=== PATIENT | female | born 1965 | race Caucasian/White ===

== ENCOUNTER 2025-05-31 16:55 | Emergency (ER) | payer MEDICARE, SELFPAY ==
--- OUTSIDE RECORDS SUMMARY | 2025-05-24 08:46 | XMS_ITS | Encounter Summary ---
Author Organization [facility] Address [address], [address] [place] [address] Care Team Providers Care Setter Cold Rolling Machine Name Role Phone Jhoana Rodrigues MD Primary Care Provider [phone] Reason for Referral * Other (Routine) - Closed Specialty Diagnoses / Procedures Referred By Contac t Referred To Contact Radiology Diagnoses Breast cancer screening by mammogram Procedures [facility]ERSON [facility] DIGITAL SCREEN BILATERAL Jhoana Rodrigues MD [address] [place] [address] Phone: tel: fax: Referral ID Status Reason Start Date Expiration Date Visits Re quested Visits Authorized [id number] Closed 05/10/2025 05/10/2026 1 1 Reason for Visit * Other (Routine) - Closed Specialty Diagnoses / Procedures Referred By Contcatalina etienne Referred To Contact Radiology Diagnoses Breast cancer screening by mammogram Procedures [facility] LYNN DIGITAL SCREEN BILATERAL Jhoana Rodrigues MD [address] [place] [address] Phone: tel: fax: Referral ID Status Reason Start Date Expiration Date Visits Re quested Visits Authorized [id number] Closed 05/10/2025 05/10/2026 1 1 Encounter Details Date Type Department Care Team (Latest Contact Info) Description 05/24/2025 8:46 AM EDT - 05/26/2025 11:59 PM EDT Hospital Encounter [facility] [address] [place] [address] Jhoana Rodrigues MD [address] [place] [id number] Breast cancer screening by mammogram Discharge Disposition: Home or Self Care Social History Tobacco Use Types Packs/Day Years Used Date Smoking Tobacco: Never Smokeless Tobacco: Never Comments Unknown Sex and Gender Information Value Date Recorded Sex Assigned at Not on file Legal Sex Female 11:30 AM EDT Gender Identity Not on file Sexual Orientation Not on file documented as of this encounter Medications at Time of Discharge escitalopram (LEXAPRO) 10 MG tabletIndication s:Situational anxiety TAKE 1 TABLET BY MOUTH DAILY 90 tablet 3 04/26/2025 SEMAGLUTIDE-WEIG HT MANAGEMENT SC Inject 1.7 mg into the skin once a week Compounded 2.5mg/ml documented as of this encounter Plan of Treatment Upcoming Encounters Date Type Department Care Team (Latest Contact Info) Description 07/08/2025 10:00 AM EDT Office Visit [facility] Specialty Providers on Main [address] [id number] Asiya Child, COMPUTER TECHNOLOGY TRAINER - PICKER FEEDER [address] [place] [address] Z12.11 (ICD-10-CM) - Colon cancer screening 11/11/2025 8:00 AM EST Scheduled Telephone Encounter [facility] Medical Providers at [address] [address] Jhoana Rodrigues MD [address] [place] [address] [id number] TELE 6 mo f/u 30' documented as of this encounter Procedures Procedure Name Priority Date/Time Associated Diagnosis Comments JERSON LYNN DIGITAL SCREEN BILATERAL Routine 05/24/2025 9:02 AM EDT Breast cancer screening by mammogram documented in this encounter Results * JERSON LYNN DIGITAL SCREEN BILATERAL (05/24/2025 9:02 AM EDT) Anatomical Region Laterality Modality Breast Bilateral Mammography 05/24/2025 9:02 AM EDT Impressions 2025 9:28 AM EDT No evidence of malignant breast disease. Annual screening mammography is recommended. BIRADS: 1 - Negative, no evidence of malignancy. Normal interval followup in 12 months. OVERALL ASSESSMENT- NEGATIVE A letter of notification will be sent to the patient regarding the results. Guidelines for Early Breast Cancer Detection: -Annual mammography screening begins at the age of 40 and continues for as long as the patient is in good health. -Women at increased risk (e.g., family history, genetic tendency, past breast cancer) should discuss with their doctor about the benefits and limitations of starting mammography screening earlier, having additional test (e.g., breast ultrasound, breast MRI) or having more frequent exams. Screening breast MRI is recommended for women with a strong family history of breast or ovarian cancer and women who were treated for Hodgkin's disease. -Dense breast parenchyma makes detection of small lesions difficult on mammography. Consider breast ultrasound as an additional tool. -7-10% of cancers are not identified by mammography. Any palpable findings should be evaluated independently of this report. -A negative mammogram should not delay biopsy if a dominant or clinically suspicious mass is present. Approximately 20% of cancers are not identified by screening mammography. False-negative results occur when mammograms appear normal even though breast cancer is present. False-positive reports average 6-10%. -As per MQSA (mammography quality standards act) requirements and the ACR ([place] [employer]) recommendations, a letter has been sent to the referring physician and/or to the patient. We appreciate being involved in this patient's care. Narrative 2025 9:28 AM EDT EXAM: [facility] LYNN DIGITAL SCREEN BILATERAL EXAM: [facility] L[facility]NN DIGITAL SCREEN BILATERAL HISTORY: Breast cancer screening by mammogram. History of 3 maternal aunts with breast cancer asymptomatic. No hormone replacement therapy. No prior breast procedures. COMPARISON: 05/20/2024. 05/20/2024, 05/20/2023, 04/27/2020. TECHNIQUE: Bilateral full-field digital MLO and CC mammographic views were obtained with 3-D breast tomosynthesis. CAD was utilized FINDINGS: BREAST DENSITY CODE: There are scattered areas of fibroglandular density. No mass, area of architectural distortion, or cluster of suspicious microcalcifications is seen. Report electronically signed by: Dr. Meena Del Rio Procedure Note Meena Del Rio MD - 2025 EXAM: [facility] L[facility]NN DIGITAL SCREEN BILATERAL EXAM: [facility] L[facility] DIGITAL SCREEN BILATERAL HISTORY: Breast cancer screening by mammogram. History of 3 maternal auntswith breast cancer asymptomatic. No hormone replacement therapy. No priorbreast procedures. COMPARISON: 05/20/2024. 05/20/2024, 05/20/2023, 04/27/2020. TECHNIQUE: Bilateral full-field digital MLO and CC mammographic views were obtained with 3-D breast tomosynthesis. CAD was utilized FINDINGS: BREAST DENSITY CODE: There are scattered areas of fibroglandular density. No mass, area of architectural distortion, or cluster of suspicious microcalcifications is seen. Report electronically signed by: Dr. Meena Del Rio IMPRESSION: No evidence of malignant breast disease. Annual screening mammography is recommended. BIRADS: 1 - Negative, no evidence of malignancy. Normal interval followupin 12 months. OVERALL ASSESSMENT- NEGATIVE A letter of notification will be sent to the patient regarding theresults. Guidelines for Early Breast Cancer Detection: -Annual mammography screening begins at the age of 40 and continues for aslong as the patient is in good health. -Women at increased risk (e.g., family history, genetic tendency, pastbreast cancer) should discuss with their doctor about the benefits andlimitations of starting mammography screening earlier, having additional test (e.g.,breast ultrasound, breast MRI) or having more frequent exams. Screening breastMRI is recommended for women with a strong family history of breast or ovariancancer and women who were treated for Hodgkin's disease. -Dense breast parenchyma makes detection of small lesions difficult on mammography. Consider breast ultrasound as an additional tool. -7-10% of cancers are not identified by mammography. Any palpable findings should be evaluated independently of this report. -A negative mammogram should not delay biopsy if a dominant or clinically suspicious mass is present. Approximately 20% of cancers are notidentified by screening mammography. False-negative results occur when mammograms appear normal even though breast cancer is present. False-positive reportsaverage 6-10%. -As per MQSA (mammography quality standards act) requirements and the ACR ([place] [employer]) recommendations, a letter has been sent tothe referring physician and/or to the patient. We appreciate being involved inthis patient's care. us Jhoana Rodrigues MD IMG MAMMOGRAPHY ORDERABLES Fi nal Result documented in this encounter Visit Diagnoses Diagnosis Breast cancer screening by mammogram documented in this encounter Care Teams Setter Cold Rolling Machine Relationship Specialty Start Date End Date Jhoana Rodrigues MD [address] [place] [address] PCP - General Internal Medicine/Pediatrics 07/01/24 documented as of this encounter
[2025-05-31 16:58] VITALS: BP 134/87; PULSE 80; TEMP 37.3; O2SAT 98; BMI 26.6
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
--- NOTE | 2025-05-31 17:09 | CT_ITS ---
The [address] [address] Patient Name: CHEVY LERNER MRN: [id number] date: 1965 Sex: F Assigned Patient Location: ER Current Patient Location: ER Accession/Order Number: [id number] Exam Date: 05/31/2025 17:49 Report Date: 05/31/2025 18:26 At the request of: GREGORIO DAVID DO Procedure: CT soft tissue neck w con CT soft tissue neck w con 05/31/2025 5:57 PM SIGNS AND SYMPTOMS: Left-sided neck swelling and lump CONTRAST: 100 mL of intravenous Omnipaque 300 TECHNIQUE: Multidetector CT axial slices of the soft tissues of the neck were obtained with IV contrast. Sagittal and coronal reformats were reconstructed. CT was performed with one or more of the following dose reduction techniques: Automated exposure control, adjustment of the mA and/or kV according to patient size, or use of iterative reconstruction technique. COMPARISON: None FINDINGS: Soft tissues of the orbits are within normal limits. The soft tissues of the infratemporal fossa fossa structures show no acute abnormality. Mucosal surfaces of the nasopharynx, oropharynx, hypopharynx, glottic, and subglottic airways are grossly unremarkable. There is a heterogeneously enhancing presumed centrally necrotic lymph node in the left level 2 deep to the sternocleidomastoid measuring 1.9 x 2.9 x 3.1 cm. Additional less prominent enhancing lymph nodes are noted in the left level 2A, level 3, and level 4 measuring up to 7 mm in short axis. Fat stranding is noted adjacent to the largest lymph node and extending along the sternocleidomastoid appears to be thickened. The parotid glands, submandibular, and the thyroid gland are within normal limits. The carotid and jugular circulations are within normal limits. The visualized lung parenchyma shows no acute pathology. No acute bony abnormalities are appreciated. Degenerative changes are noted in the cervical spine. The skull base, craniocervical junction, atlantoaxial joints are within normal limits. The paranasal sinuses are within normal limits. CT/CT soft tissue neck w con IMPRESSION: There is a heterogeneously enhancing presumed centrally necrotic lymph node in the left level 2 deep to the sternocleidomastoid measuring 1.9 x 2.9 x 3.1 cm. This is most likely neoplastic. A primary oropharyngeal mass is suspected but is not visualized. Direct visualization is recommended. Additional less prominent enhancing lymph nodes are noted in the left level 2A, level 3, and level 4 measuring up to 7 mm in short axis. Fat stranding is noted adjacent to the largest lymph node and extending along the sternocleidomastoid appears to be thickened. Impression dictated by: Henry Heath M.D. 05/31/2025 6:26 PM Dictation Location: [place] [address] Electronically authenticated by: [id number] Y Date: 05/31/2025 18:26
--- NOTE | 2025-05-31 17:15 | ED.GENADUL1 ---
HPI HPI - General Adult General Chief complaint: Neck Pain/Injury Stated complaint: Neck Pain Lump Time Seen by Provider: 05/31/25 17:03 Source: patient Mode of arrival: walk-in Limitations: no limitations History of Present Illness HPI narrative: Patient is a healthy 60-year-old female presenting to the emergency department for left neck pain and swelling. Patient states she noticed the swelling 6 days ago, somewhat quick in onset. She states that the swelling has been persistent over the last 6 days, not getting any better or worse. She states that it is extremely tender to the touch. She states she is limited range of motion of the neck secondary to pain. She denies any injuries to the areas. She denies any history of thyroid disease. She denies any trouble swallowing, breathing, speaking, or any other systemic symptoms. She denies headache, visual changes, chest pain, shortness of breath, nausea, vomiting, and abdominal pain, fevers, or chills. She denies any recent weight changes. No changes in her, skin, or nails. Related Data Allergies Allergy/AdvReac Type Severity Reaction Status Date / Time No Known Drug Allergies Allergy Verified 05/31/25 16:58 Opioid HPI Opioid Management Most Recent Opioid Data: Last Pain Scale 6 Today, 16:58 Review of Systems ROS Status of ROS 10 or more systems reviewed and unremarkable except as noted in history and below PFSH PFSH Social History Little interest or pleasure in doing things: not at all Feeling down, depressed, or hopeless: not at all Exam Narrative Exam Narrative: CONSTITUTIONAL: Well-appearing, nontoxic, answering questions and following commands appropriately SKIN: Was warm and dry. EYES: Sclerae white. EARS, NOSE, THROAT: There is soft tissue swelling and tenderness palpation throughout the left side of the neck. No overlying erythema, induration, drainage, or crepitus. Moist oral mucosa. Uvula midline. Speaking with a normal voice. No trismus. RESPIRATORY: Clear to auscultation bilaterally, no wheezes, crackles, or stridor, no use of accessory muscles CARDIOVASCULAR: Normal rate and regular rhythm. There is no S3, S4, murmur, rub. GASTROINTESTINAL: Abdomen is nondistended. MUSCULOSKELETAL: No peripheral edema. Limited range of motion with head rotation to the left secondary to pain. NEUROLOGIC: Patient is awake and alert. Facies were symmetrical. Constitutional Vital Signs, click to edit/add: Last Vital Signs Temp 99.1 F 05/31/25 16:58 Pulse 80 05/31/25 16:58 Resp 16 05/31/25 16:58 BP 134/87 05/31/25 16:58 Pulse Ox 98 05/31/25 16:58 Course Vital Signs Vital signs: Vital Signs Temperature 99.1 F 05/31/25 16:58 Pulse Rate 80 05/31/25 16:58 Respiratory Rate 16 05/31/25 16:58 Blood Pressure 134/87 05/31/25 16:58 Pulse Oximetry 98 05/31/25 16:58 Temperature 99.1 F 05/31/25 16:58 Pulse Rate 80 05/31/25 16:58 Respiratory Rate 16 05/31/25 16:58 Blood Pressure 134/87 05/31/25 16:58 Pulse Oximetry 98 05/31/25 16:58 Medical Decision Making MDM Narrative Medical decision making narrative: Patient is a healthy 60-year-old female presenting to the emergency department with a 6-day history of left-sided neck pain and soft tissue swelling. Her vital signs are within normal limits. She is afebrile and hemodynamically stable. Examination as noted above. Differential diagnose includes abscess, thyroid nodule/mass, myositis, lymphadenitis, malignancy, vascular anomaly, or any other pathologies involving the structures of the neck. She has no airway involvement and no complaints of dysphagia/odynophagia. IV was established and laboratory studies were obtained. CT neck with IV contrast was ordered to further investigate. Laboratory studies were unremarkable. No significant electrolyte or metabolic derangement. No evidence of acute kidney injury. No anemia, leukocytosis, or thrombocytopenia. CT neck independently reviewed and interpreted by myself and reviewed by radiology demonstrated a heterogeneously enhancing presumed centrally necrotic lymph node in the left level 2 deep to the sternocleidomastoid measuring 1.9 x 2.9 x 3.1 cm. This is most likely neoplastic. A primary oropharyngeal mass is suspected but is not visualized. Direct visualization is recommended. Additional less prominent enhancing lymph nodes are noted in the left level 2A, level 3, and level 4 measuring up to 7 mm in short axis. At this time, it appears the patient's presentation is most likely related to ENT malignancy. I do believe this warrants further consultation by ENT specialist. The patient request care at the [facility]. My shift is now coming to an end. At the time of sign-out, consultation from ENT was pending. Medical Records Medical records reviewed: Yes I reviewed the patient's medical records Lab Data Lab results reviewed: Yes I reviewed the patient's lab results Labs: Lab Results 05/31/25 Range/Units 17:25 WBC 9.6 (4.0-11.0) 10^3/uL RBC 4.37 (4.20-5.40) 10^6/uL Hgb 13.4 (12.0-16.0) g/dL Hct 40.0 (36.0-48.0) % MCV 91.5 (81.0-99.0) fL MCH 30.7 (26.7-34.0) pg MCHC 33.5 (29.9-35.2) g/dL RDW 12.1 (11.0-15.0) % Plt Count 276 (150-450) 10^3/uL MPV 10.3 (9.5-13.5) fL Neut % (Auto) 74.0 (43.0-75.0) % Lymph % (Auto) 18.1 L (20.5-60.0) % [place] % (Auto) 6.0 (1.7-12.0) % Eos % (Auto) 1.5 (0.9-7.0) % Baso % (Auto) 0.2 (0.2-2.0) % Neut # (Auto) 7.1 H (1.4-6.5) 10^3/uL Lymph # (Auto) 1.7 (1.2-3.8) 10^3/uL [place] # (Auto) 0.6 (0.3-0.8) 10^3/uL Eos # (Auto) 0.1 (0.0-0.7) 10^3/uL Baso # (Auto) 0.0 (0.0-0.1) 10^3/uL Abs Immat Gran (auto) 0.02 (0.00-0.03) 10^3/uL Imm/Tot Granulo (auto) 0.2 (0.0-0.5) % Sodium 140 (136-145) mmol/L Potassium 4.5 (3.5-5.1) mmol/L Chloride 101 (98-107) mmol/L Carbon Dioxide 31.2 (21.0-32.0) mmol/L Anion Gap 12.3 BUN 16.0 (7.0-18.0) mg/dL Creatinine 0.67 (0.55-1.02) mg/dL Est GFR ( Amer) >60 (>=60 mL/min/1.73m^2) Est GFR (Non-Af Amer) >60 (>=60 mL/min/1.73m^2) BUN/Creatinine Ratio 23.9 Glucose 92 (74-106) mg/dL Calcium 9.7 (8.5-10.1) mg/dL TSH 2.824 (0.358-3.740) uIU/mL Imaging Data ct neck: Attestation: I personally reviewed and interpreted this imaging study as follows: Radiologist's impression: ITS Impressions Soft Tissue Neck CT 05/31/25 17:09 IMPRESSION: There is a heterogeneously enhancing presumed centrally necrotic lymph node in the left level 2 deep to the sternocleidomastoid measuring 1.9 x 2.9 x 3.1 cm. This is most likely neoplastic. A primary oropharyngeal mass is suspected but is not visualized. Direct visualization is recommended. Additional less prominent enhancing lymph nodes are noted in the left level 2A, level 3, and level 4 measuring up to 7 mm in short axis. Fat stranding is noted adjacent to the largest lymph node and extending along the sternocleidomastoid appears to be thickened. Impression dictated by: Henry Heath M.D. 05/31/2025 6:26 PM Dictation Location: [place] [address] Electronically authenticated by: [id number] Y Date: 05/31/2025 18:26 Discharge Plan Discharge Patient Disposition: Still a Patient
[2025-05-31 17:55] LABS: Hematocrit 40.0 % (36.0-48.0); Hemoglobin 13.4 g/dL (12.0-16.0); Immature Granulocytes Abs Auto 0.02 10^3/uL (0.00-0.03); Immature Granulocytes Pct Auto 0.2 % (0.0-0.5); Lymphocytes Absolute Auto 1.7 10^3/uL (1.2-3.8); Mean Corpuscular HGB Conc 33.5 g/dL (29.9-35.2); Mean Corpuscular Hemoglobin 30.7 pg (26.7-34.0); Mean Corpuscular Volume 91.5 fL (81.0-99.0); Platelet Count 276 10^3/uL (150-450); Red Blood Count 4.37 10^6/uL (4.20-5.40); White Blood Count 9.6 10^3/uL (4.0-11.0)
[2025-05-31 18:06] LABS: Anion Gap 12.3; Blood Urea Nitrogen 16.0 mg/dL (7.0-18.0); Calcium 9.7 mg/dL (8.5-10.1); Carbon Dioxide 31.2 mmol/L (21.0-32.0); Chloride 101 mmol/L (98-107); Estimated GFR (African America >60 (>=60 mL/min/1.73m^2); Estimated GFR (Non-African Ame >60 (>=60 mL/min/1.73m^2); Glucose 92 mg/dL (74-106); Sodium 140 mmol/L (136-145)
[2025-05-31 18:10] LABS: Potassium 4.5 mmol/L (3.5-5.1)
[2025-05-31 18:20] LABS: Thyroid Stimulating Hormone 2.824 uIU/mL (0.358-3.740)
--- NOTE | 2025-05-31 19:23 | ED.NECK1 ---
HPI HPI - Neck Pain/Injury General Chief Complaint: Neck Pain/Injury Stated Complaint: Neck Pain Lump Time Seen by Provider: 05/31/25 17:03 Source: patient Mode of arrival: walk-in Limitations: no limitations History of Present Illness HPI Narrative: This 60-year-old female was signed out to me at shift change. She presents for evaluation of swelling and tenderness at the left lateral neck. Symptoms have been present for the past 6 days. Labs are reviewed and are normal. CT scan shows heterogeneously enhancing presumed centrally necrotic lymph node in the level deep to the sternocleidomastoid measuring 1.9 x 2.9 x 3.1 cm which is most likely neoplastic. The primary oropharyngeal mass was suspected but not visualized. Additional less prominent enhancing lymph nodes were noted in the left level 2A level 3 and level 4 with some fat stranding noted adjacent to the largest lymph node extending along the sternocleidomastoid which appears to be thickened. The results of these findings were discussed with the patient prior to the beginning of my shift. The patient and her request to be transferred to [facility]. Patient was seen and evaluated. She is nontoxic in appearance. She does have some tenderness and swelling at the left lateral neck area. There is no nuchal rigidity. Her voice is not muffled. She does not smoke. I did speak to the transfer center at [facility] who will be attempting to expedite an outpatient evaluation by ENT for a biopsy. Patient was empirically treated with 3 g of Unasyn. She denies anything for pain or anxiety at this time stating she has Xanax at home. [facility] returned our call and gave us the number for the head and neck department at [facility]. We were unable to procure her an appointment at this time as the offices are closed. The patient was given a copy of the phone number with instructions to call and ask for the head and neck department. She was given a copy of her CT scan on a disk and her labs for evaluation when she goes for follow-up. She will be discharged home with a prescription for Augmentin to use for the next week. She was encouraged return the emergency department for worsening symptoms or any concerns. I offered her referral to local ENTs if she decided to pursue a biopsy locally but she declines this at this time. Related Data Allergies Allergy/AdvReac Type Severity Reaction Status Date / Time No Known Drug Allergies Allergy Verified 05/31/25 16:58 Opioid HPI Opioid Management Most Recent Opioid Data: Last Pain Scale 6 Today, 16:58 PFSH PFSH Social History Little interest or pleasure in doing things: not at all Feeling down, depressed, or hopeless: not at all Exam Constitutional Vital Signs, click to edit/add: Last Vital Signs Temp 99.1 F 05/31/25 16:58 Pulse 80 05/31/25 16:58 Resp 16 05/31/25 16:58 BP 134/87 05/31/25 16:58 Pulse Ox 98 05/31/25 16:58 Course Vital Signs Vital signs: Vital Signs Temperature 99.1 F 05/31/25 16:58 Pulse Rate 80 05/31/25 16:58 Respiratory Rate 16 05/31/25 16:58 Blood Pressure 134/87 05/31/25 16:58 Pulse Oximetry 98 05/31/25 16:58 Temperature 99.1 F 05/31/25 16:58 Pulse Rate 80 05/31/25 16:58 Respiratory Rate 16 05/31/25 16:58 Blood Pressure 134/87 05/31/25 16:58 Pulse Oximetry 98 05/31/25 16:58 MDM - Neck Pain/Injury Lab Data Labs: Lab Results 05/31/25 Range/Units 17:25 WBC 9.6 (4.0-11.0) 10^3/uL RBC 4.37 (4.20-5.40) 10^6/uL Hgb 13.4 (12.0-16.0) g/dL Hct 40.0 (36.0-48.0) % MCV 91.5 (81.0-99.0) fL MCH 30.7 (26.7-34.0) pg MCHC 33.5 (29.9-35.2) g/dL RDW 12.1 (11.0-15.0) % Plt Count 276 (150-450) 10^3/uL MPV 10.3 (9.5-13.5) fL Neut % (Auto) 74.0 (43.0-75.0) % Lymph % (Auto) 18.1 L (20.5-60.0) % [place] % (Auto) 6.0 (1.7-12.0) % Eos % (Auto) 1.5 (0.9-7.0) % Baso % (Auto) 0.2 (0.2-2.0) % Neut # (Auto) 7.1 H (1.4-6.5) 10^3/uL Lymph # (Auto) 1.7 (1.2-3.8) 10^3/uL [place] # (Auto) 0.6 (0.3-0.8) 10^3/uL Eos # (Auto) 0.1 (0.0-0.7) 10^3/uL Baso # (Auto) 0.0 (0.0-0.1) 10^3/uL Abs Immat Gran (auto) 0.02 (0.00-0.03) 10^3/uL Imm/Tot Granulo (auto) 0.2 (0.0-0.5) % Sodium 140 (136-145) mmol/L Potassium 4.5 (3.5-5.1) mmol/L Chloride 101 (98-107) mmol/L Carbon Dioxide 31.2 (21.0-32.0) mmol/L Anion Gap 12.3 BUN 16.0 (7.0-18.0) mg/dL Creatinine 0.67 (0.55-1.02) mg/dL Est GFR ( Amer) >60 (>=60 mL/min/1.73m^2) Est GFR (Non-Af Amer) >60 (>=60 mL/min/1.73m^2) BUN/Creatinine Ratio 23.9 Glucose 92 (74-106) mg/dL Calcium 9.7 (8.5-10.1) mg/dL TSH 2.824 (0.358-3.740) uIU/mL Discharge Plan Discharge Chief Complaint: Neck Pain/Injury Clinical Impression: Mass of left side of neck Patient Disposition: Home, Self-Care Time of Disposition Decision: 20:05 Condition: Good Print Language: Cymro Instructions: Needle Biopsy (DC) Additional Instructions: Call [facility] [phone] as soon as possible to get an appointment with [facility] [place]. Use antibiotics as prescribed. Return to the emergency department for increased swelling, difficulty breathing or swallowing or any concerns. Referrals: NITHYA PIERRE [Physician] - 1 week Yasmin Khanna MD [Physician, Ear, Nose, Throat] - 1 week BIEDENBACH,ROSY, DO [Physician, Ear, Nose, Throat] - 1 week Jhoana Rodrigues MD [Primary Care Provider] - 1 week
[2025-05-31] MEDS: AMPICILLIN SODIUM/SULBACTAM NA 3 GM in 0.9 % SODIUM CHLORIDE 100 ML IV (19:44)
[2025-05-31 20:21] VITALS: O2SAT 96
== END 2025-05-31 20:23 | disposition home or self-care (01) ==
PROVIDERS: Student in an Organized Health Care Education/Training Program; Emergency Provider Emergency Medicine; Family Provider Family Medicine; PCP Family Medicine Adolescent Medicine
DX: R22.1 Localized swelling, mass and lump, neck (principal)
CPT/HCPCS: 36415; 70491; 80048; 84443; 85025; 96365; 99285; J0295; Q9967